=== PATIENT | female | born 1970 | race Caucasian/White ===

== ENCOUNTER → 2016-09-26 | Outpatient (CLI) | payer OTHER ==
[~2016-09-26] MED LIST: GADOBUTROL 10 ML VIAL IVP ONE
== END ==
LOC: FIMAGING 07:19
PROVIDERS: ATTEND Physician Assistant
DX: J32.0 Chronic maxillary sinusitis (principal)
CPT/HCPCS: A9585

== ENCOUNTER 2017-07-23 10:49 | Day surgery (SDC) | payer OTHER ==
[2017-07-23] MEDS ORDERED: BUPIVACAINE 0.5% 30 ML SDV ONE (11:19)
--- NOTE | 2017-07-23 11:26 | PDHPUP ---
History & Physical Update H&P update statement: This history and physical update is based on an assessment of the patient which was completed after admission or registration (within 24 hours), but prior to the surgery/procedure.
--- NOTE | 2017-07-23 12:22 | POSTOPPROG ---
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
[2017-07-23 12:41] VITALS: PULSE 91; RESP 12
[2017-07-23 12:50] VITALS: BP 157/105; O2SAT 98
[2017-07-23 12:52] VITALS: TEMP 97.7
--- NOTE | 2017-07-23 12:52 | GHP ---
[f rep st] PREOP HISTORY AND PHYSICAL DATE OF ADMISSION: 07/23/2017 PREOPERATIVE DIAGNOSIS: Right index finger radial sided proximal interphalangeal joint mass. POSTOPERATIVE DIAGNOSIS: Right index finger radial sided proximal interphalangeal joint mass. PROPOSED OPERATION: Excision of right index finger radial sided mass. INDICATION: This mass had been present for several years, but had increased in size with time and wa s starting to cause limitation of PIP joint motion and also interference with gripping activities. I t was felt, at this point, that excision was appropriate. DESCRIPTION: Under digital block anesthesia using 5 mL of 0.5% plain Marcaine, the right index finge r achieved adequate anesthesia. The right hand and forearm were prepped and draped in the usual [facility] ion. A [place] drain tourniquet was applied at the base of the right index finger and a U-shaped inc ision was made over the radial aspect of the PIP joint and the skin flap turned palmarly. The dorsal sensory branch as well as the digital nerve proper on the radial aspect of the digit were identified and protected and the mass extended down to the PIP joint and to the tendon sheath and the mass was excised without difficulty. It shelled out nicely, from the surrounding tissues and that mass was sent to pathology for evaluation. It appeared to be a giant cell tumor, but there was no ev idence of involvement of the joint and inspection of the flexor tendon also did not reveal any tumor tissue in the tendon sheath itself. The wound was irrigated profusely with body-temperature saline. Neurovascular structures were replac ed in their anatomic position. Skin closed with horizontal mattress sutures of 5-0 Prolene and then a bulky soft pressure dressing was applied. The [place] drain tourniquet removal resulted in immedia te pinking of the digits. The patient was brought to the recovery area where detailed instructions w ere given prior to discharge. A prescription for [place] and Keflex was provided. FOLLOWUP: Followup arrangements in the office for about a week postop for dressing and suture remova l and review of pathology. /[id number]/MODL
== END 2017-07-23 12:50 | disposition home or self-care (01) ==
LOC: FSGY 10:49
PROVIDERS: ATTEND Specialist
PROC: 0RBW0ZZ Excision of Right Finger Phalangeal Joint, Open Approach (ICD-10-PCS; principal; 2017-07-23 11:30)
DX: D48.1 Neoplasm of uncertain behavior of connective and other soft tissue (principal); I10 Essential (primary) hypertension; E07.9 Disorder of thyroid, unspecified

== ENCOUNTER → 2017-09-24 | Outpatient (CLI) | payer OTHER | LOC: FIMAGING 12:07 | PROVIDERS: ATTEND Family Medicine | DX: Z03.89 Encounter for observation for other suspected diseases and conditions ruled out (principal) ==

== ENCOUNTER 2018-10-26 10:45 | Day surgery (SDC) | payer OTHER ==
--- NOTE | 2018-10-25 13:38 | GHP ---
[f rep st] PREOP HISTORY AND PHYSICAL DATE OF ADMISSION: 10/26/2018 CHIEF COMPLAINT: Right forefoot pain. HISTORY OF PRESENT ILLNESS: The patient is a 48-year-old with history of progressive right medial fo refoot pain. She has been having increasing limitations secondary to her symptoms. PAST MEDICAL HISTORY: Positive for hypothyroid and hypertension. MEDICATIONS: She takes thyroid, losartan, metoprolol, and progesterone. ALLERGIES: She has no drug allergies. FAMILY HISTORY: Noncontributory. SOCIAL HISTORY: Negative for tobacco use. PHYSICAL EXAMINATION: GENERAL: She is in overall apparent good health. No acute distress. HEENT: Head is normocephalic. Pupils equal, round, reactive to light. Extraocular eye movements intact. NECK: Supple. No JVD or lymphadenopathy. Chest: Clear to auscultation. Heart: Regular rate and rhythm. No murmurs or gallops. ABDOMEN: Soft, nontender, nondistended. GENITAL/RECTAL/BREASTS: De ferred. EXTREMITIES: Tenderness and limited range of motion over her right 1st MTP joint. ASSESSMENT: Right hallux rigidus. PLAN: The patient is scheduled to undergo a right 1st MTP cheilectomy and debridement, and CARTIVA i mplant hemiarthroplasty. /[id number]/MODL
[2018-10-26] MEDS ORDERED: LR 1,000 ML IV ONE (11:04)
[2018-10-26] MEDS ORDERED: LIDOCAINE 1% 300 MG/30 ML SDV ONE (11:33)
[2018-10-26] MEDS ORDERED: BUPIVACAINE 0.5% 30 ML SDV ONE (11:33)
--- NOTE | 2018-10-26 12:35 | PDHPUP ---
History & Physical Update H&P update statement: This history and physical update is based on an assessment of the patient which was completed after admission or registration (within 24 hours), but prior to the surgery/procedure. H&P update: H&P reviewed & patient examined, no change in patient's condition since H&P completed
[2018-10-26] MEDS ORDERED: ceFAZolin 2 GM/DEXTROSE 100 ML IV ONE (12:36)
--- NOTE | 2018-10-26 12:37 | POSTOPPROG ---
Post Op Note Date of Operation: 10/26/18 Surgeon: Umair Rojas Anesthesia: LMA Pre-op Diagnosis: R hallux rigidus Post-op Diagnosis: same Procedure: R 1st mtp implant hemiarthroplasty Inf/Abcess present in the surg proc area at time of surgery?: No EBL: Minimal
--- NOTE | 2018-10-26 12:43 | PDANEPAE ---
ANE History of Present Illness 48 yo for hemiarthoplasty l toe ANE Past Medical History - Cardiovascular History Hx Hypertension: Yes Hx Arrhythmias: No Hx Chest Pain: No Hx Coronary Artery / Peripheral Vascular Disease: No Hx CHF / Valvular Disease: No Hx Palpitations: No - Pulmonary History Hx COPD: No Hx Asthma/Reactive Airway Disease: No Hx Recent Upper Respiratory Infection: No Hx Oxygen in Use at Home: No Hx Sleep Apnea: No Sleep Apnea Screening Result - Last Documented: Negative - Neurologic History Hx Cerebrovascular Accident: No Hx Seizures: No Hx Dementia: No - Endocrine History Hx Diabetes: No Endocrine History Comment: PRE DIABETIC HGBA1C ELEVATIONS - Renal History Hx Renal Disorders: No - Liver History Hx Hepatic Disorders: No - Neurological & Psychiatric Hx Hx Neurological and Psychiatric Disorders: No - Cancer History Hx Cancer: No - Congenital Disorder History Hx Congenital Disorders: No - GI History Hx Gastrointestinal Disorders: No - Other Health History Other Health History: none - Chronic Pain History Chronic Pain: No - Surgical History Prior Surgeries: 3 C-SECTIONS. LT THUMB TENDON REPAIR. ABDOMINOPLASTY. UTERINE ABLATION ANE Review of Systems Review of Systems: - Exercise capacity METS (RN): 5 METS ANE Patient History - Allergies Allergies/Adverse Reactions: No Known Allergies Allergy (Verified 10/19/18 15:35) - Home Medications Home medications: home medication list seen and reviewed Home Medications: Metoprolol Tartrate 05/02/15 [Last Taken 10/26/18] Losartan Potassium 07/21/17 [Last Taken 10/26/18] - NPO status NPO Since - Liquids (Date): 10/26/18 NPO Since - Liquids (Time): 08:00 NPO Since - Solids (Date): 10/25/18 NPO Since - Solids (Time): 18:00 - Anes Hx Anes Hx: post operative nausea and vomiting - Smoking Hx Smoking Status: Never smoked - Family Anes Hx Family Hx Anesthesia Complications: none ANE Labs/Vital Signs - Vital Signs Blood Pressure: 161/109 Heart Rate: 76 Respiratory Rate: 18 O2 Sat (%): 95 Height: 5 ft 6 in Weight: 79.379 kg ANE Physical Exam - Airway Neck exam: FROM Mallampati Score: Class 2 Mouth exam: normal dental/mouth exam - Pulmonary Pulmonary: no respiratory distress - Cardiovascular Cardiovascular: regular rate and rhythym - ASA Status ASA Status: II ANE Anesthesia Plan Anesthesia Plan: GA w LMA
[2018-10-26] MEDS ORDERED: MIDAZOLAM 2 MG/2 ML VIAL IVP ONE (12:44)
[2018-10-26] MEDS ORDERED: PROPOFOL/EMULSION 500 MG/50 ML BOTTLE IV ONE (12:52)
[2018-10-26] MEDS ORDERED: fentaNYL 100 MCG/2 ML INJ ONE (12:54)
[2018-10-26] MEDS ORDERED: DEXAMETHASONE 4 MG/ML VIAL IVP PRN (13:26)
[2018-10-26] MEDS ORDERED: PROMETHAZINE HCL 25 MG/ML INJ IVP PRN (13:26)
[2018-10-26] MEDS ORDERED: oxyCODONE IR 5 MG TAB PO PRN (13:26)
[2018-10-26] MEDS ORDERED: NALOXONE HCL 0.4 MG/ML INJ IVP PRN (13:26)
--- NOTE | 2018-10-26 13:57 | POSTANESTH ---
Post Anesthetic Evaluation Cardiovascular Status: Normal, Stable Respiratory Status: Normal, Stable Level of Consciousness/Mental Status: Can Participate in Eval Pain Control: Adequate, Prn Tx Ordered Nausea/Vomiting Control: Adequate, Prn Tx Ordered Complications Possibly Related to Anesthesia: None Noted
[2018-10-26 14:48] VITALS: BP 129/103
--- NOTE | 2018-10-26 15:18 | GOP ---
[f rep st] OPERATIVE REPORT DATE OF OPERATION: 10/26/2018 SURGEON: Umair Rojas MD ANESTHESIA: General. PREOPERATIVE DIAGNOSIS: Right hallux rigidus. POSTOPERATIVE DIAGNOSIS: Right hallux rigidus. PROCEDURE PERFORMED: 1. Right 1st MTP cheilectomy and debridement. 2. Right 1st MTP implant hemiarthroplasty. 3. Intraoperative use of fluoroscopy. FINDINGS: ESTIMATED BLOOD LOSS: Minimal. INDICATIONS: The patient is a 48-year-old with a history of progressive right 1st MTP pain. Clinica lly and radiographically she was noted to have advanced hallux rigidus. Based on her persistence of symptoms, refractory to nonoperative treatment, she is interested in pursuing operative treatment. F rom an operative standpoint, options for end-stage arthritis, including arthrodesis and implant hemia rthroplasty, were discussed with anticipated risks and benefits of both. The patient elected to purs ue implant hemiarthroplasty (Cartiva). The patient acknowledged she understood the potential risks of the operation including, but not limited to bleeding, infection, neurovascular damage, loss of limb and limb function, pain or functional limitations despite operative treatment, implant failure requir ing removal, revision, arthrodesis or anesthetic risk. She acknowledged she understood the potential risks, planned procedure and postoperative plan well and had all questions answered prior to surgery . She gave her consent for the operative procedure. DESCRIPTION OF PROCEDURE: The patient was brought to the operating room, after IV antibiotics were a dministered. She was placed in a supine position where general anesthetic was administered. A tourn iquet was placed on the right calf up underneath the right hip and shoulder. The right lower leg was prepped and draped in a standard sterile fashion. After marking the incision and [place] wrap exsanguina tion, the tourniquet was inflated to 250. A longitudinal incision was made along the dorsal aspect o f the 1st MTP joint. Skin and subcutaneous tissue were sharply incised. Sharp dissection was hui d adjacent to the extensor hallucis longus tendon through the capsule. The capsule was reflected med ially and laterally. End-stage degenerative changes on the metatarsal head were identified. Bony pr ominences on the dorsal, medial and lateral aspect of the metatarsal head and proximal phalanx were r emoved with a saw and rongeur. The plantar capsule was freed with a [place] elevator. Full range of m otion was achieved. A guide pin from the Cartiva implant was placed in the center aspect of the meta tarsal head. Based on intraoperative templating, a size 10 mm implant was chosen. The coring reamer was utilized to create a trough for the implant placement. The implant was impacted into place, [place] ining approximately 3 mm proud. Full range of motion without any impingement was achieved. Attention was directed towards closure. Hypertrophic capsule was sharply debrided. The capsule was loosely approximated with 2-0 Vicryl suture in an interrupted fashion, subcutaneous tissue closed wit h 3-0 Vicryl suture in an interrupted fashion. The skin was closed with 4-0 nylon interrupted sutures . 0.5% Marcaine without epinephrine was injected in the wound sites. The wounds were dressed with st erile Adaptic, 4 x 4 Kerlix, and Coban. The patient tolerated the procedure well and [facility], extubated in stable condition postoperatively. All sponge, needle, and instrument c ounts were reported as being correct. DRAINS: None. COMPLICATIONS: None. PLAN: The patient will be discharged home weightbearing as tolerated in a postop shoe. /[id number]/MODL
== END 2018-10-26 14:51 | disposition home or self-care (01) ==
LOC: FSGY 10:45
PROVIDERS: ATTEND Orthopaedic Surgery Foot and Ankle Surgery
PROC: BQ1 Imaging, Non-Axial Lower Bones, Fluoroscopy (ICD-10-PCS; principal; 2018-10-26 12:15)
PROC: 0SRM0JZ Replacement of Right Metatarsal-Phalangeal Joint with Synthetic Substitute, Open Approach (ICD-10-PCS; principal; 2018-10-26 12:15)
DX: M20.21 Hallux rigidus, right foot (principal); I10 Essential (primary) hypertension; E03.9 Hypothyroidism, unspecified; R73.03 Prediabetes
CPT/HCPCS: J0690; J2250; J2704; J3010